=== PATIENT | female | born 1965 | race Two or more races ===

== ENCOUNTER → 2020-04-14 09:46 | Outpatient (CLI) | payer OTHER ==
[~2020-04-14 09:46] MED LIST: ALLERGY EYE DRO10 M1 OP; ALLERGY RELIE15.8 ML NASAL; ATORVASTATIN CA10 MG PO; BUPROPION XL150 MG PO; CLONAZEPAM2 MG PO; DULCOLAX5 MG PO; DULOXETINE HCL40 MG PO; HUMIRA PEN40 MG/0.2; LIPOCHOL PLUS0.5 MG PO; LORATADINE10 M1 PO; LORAZEPAM1 MG PO; METFORMIN HCL500 M3 PO; PROAIR HFA8.5 GM IH; RESTASIS1 EACH OP; RESTORIL30 M1 PO; SINGULAIR10 MG PO; SPIRIVA RESPIMAT4 G1 IH; SYMBICORT 16010.2 GM IH; WIXELA 250-501 EACH IH; ZANAFLEX2 M1 PO
== END | disposition home or self-care (01) ==
LOC: LAB 09:46
PROVIDERS: ATTEND Surgery
DX: R15.9 Full incontinence of feces (principal); R19.4 Change in bowel habit; R19.5 Other fecal abnormalities

== ENCOUNTER 2020-04-22 06:56 | Day surgery (SDC) | payer OTHER ==
[2020-04-22] MEDS ORDERED: DICLOFENAC SODI75 MG PO (09:23)
== END 2020-04-22 11:50 | disposition home or self-care (01) ==
LOC: CIR.AMB 06:56
PROVIDERS: ATTEND Surgery
DX: R15.9 Full incontinence of feces (principal); Z20.828 Contact with and (suspected) exposure to other viral communicable diseases; N39.3 Stress incontinence (female) (male)

== ENCOUNTER 2020-05-27 14:08 | Outpatient (CLI) | payer OTHER ==
[~2020-05-27 14:08] MED LIST changes: +DICLOFENAC SODI75 MG PO
== END 2020-05-27 14:20 | disposition home or self-care (01) ==
LOC: LAB 14:08
PROVIDERS: ATTEND Radiology Diagnostic Radiology
DX: N20.0 Calculus of kidney (principal)

== ENCOUNTER 2020-06-01 08:33 | Outpatient (CLI) | payer OTHER | END 2020-06-01 08:53 | disposition home or self-care (01) | LOC: RAD 08:33 → MAMO-SONO 08:45 → RAD 08:53 | DX: N18.2 Chronic kidney disease, stage 2 (mild) (principal); E11.22 Type 2 diabetes mellitus with diabetic chronic kidney disease; R05 Cough; R07.82 Intercostal pain; M54.41 Lumbago with sciatica, right side | CPT/HCPCS: 71046; 71110; 72158; 76700; 76856; A9575 ==

== ENCOUNTER 2025-03-05 08:01 | Emergency (ER) | payer OTHER ==
[~2025-03-05] VITALS: Ht 157.5 cm; Wt 72.6 kg
[~2025-03-05 08:01] MED LIST changes: -CEFTRIAXONE SODIUM 1,000 MG VIAL ONE; -CEFUROXIME500 MG PO; -METHYLPREDNISOLONE SOD SUCC 40 MG VIAL ONE; -PEPCID AC20 MG PO
[2025-03-05 08:26] VITALS: BP 113/69; O2SAT 98
[2025-03-05] MEDS ORDERED: METHYLPREDNISOLONE SOD SUCC 40 MG VIAL IM ONE (08:45)
[2025-03-05] MEDS ORDERED: CEFTRIAXONE SODIUM 1,000 MG VIAL IM ONE (08:45)
[2025-03-05] MEDS ORDERED: CEFUROXIME500 MG PO (08:46)
[2025-03-05] MEDS ORDERED: PEPCID AC20 MG PO (08:46)
== END 2025-03-05 09:38 | disposition home or self-care (01) ==
LOC: ER 08:41
DX: T23.102A Burn of first degree of left hand, unspecified site, initial encounter (principal); X08.8XXA Exposure to other specified smoke, fire and flames, initial encounter; Y93.89 Activity, other specified; Y92.010 Kitchen of single-family (private) house as the place of occurrence of the external cause; Y99.9 Unspecified external cause status; E11.9 Type 2 diabetes mellitus without complications; Z79.84 Long term (current) use of oral hypoglycemic drugs; Z88.8 Allergy status to other drugs, medicaments and biological substances

== ENCOUNTER → 2025-03-05 | Emergency (ER) | payer OTHER ==
[~2025-03-05] MED LIST changes: +CEFTRIAXONE SODIUM 1,000 MG VIAL ONE; +CEFUROXIME500 MG PO; +COZAAR25 MG PO; +METHYLPREDNISOLONE SOD SUCC 40 MG VIAL ONE; +PEPCID AC20 MG PO
== END | disposition left against medical advice (07) ==
LOC: ER 06:48
DX: Z53.21 Procedure and treatment not carried out due to patient leaving prior to being seen by health care provider (principal)